=== PATIENT | female | born 1965 | race Caucasian/White ===

== ENCOUNTER 2020-02-18 11:00 | Outpatient (RCR) | payer OTHER, SELFPAY ==
--- NOTE | 2020-01-18 07:10 | HP.OTEVAL ---
Patient's Visit Information ANALISA QUINTERO is a 54 year old F, referred to Occupational Therapy by Dr. Nakul Concepcion MD, with a diagnosis of right intraticular distal radius fx. Date of Evaluation: 01/17/20 Occupational Therapist: Odessa Carrasquillo, BERENICE/Jimmy, CHT - Subjective This 54 year old female was seen for OT eval with dx of right intraartic lower end radial fx. Pt states she had a fall December 06, 2019. Pt was splinted for about two weeks and due to change in bone structure pt needed to have sx was on December 28, 2019. 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 pt states she is limited with all ADLs and IADls at this time due to her limited ROM and healing bone structure - ADLs Fasteners: Snaps Bathing: Handle washcloth & soap, Squeeze shampoo bottle Kitchen: Chop with knife, Peel fruits & vegetables, Open jars, Open bottle caps, Ziplock bags, Pour from pitcher, Lift saucepan Household: Vacuum, Sweep/mop, Laundry - Pain right wrist 0 Pain Intensity Range: 0, 4 - ROM Forearm: right supination 0 left 85 Wrist: right 55/25 left 75/75 Opposition: 10 ROM Comments: pt demo the ability to form a composite fist - Strength Neon Glass Blower: right 15# left 60# Lateral Pinch: right 6# left 10# Tripod Pinch: right 4# left 10# Tip-to-Tip Pinch: right 2# left 6# - Sensation Sensation Comments: denies - Quick DASH-Disab of Arm,Shoulder& Hand Quick DASH Score: 58.3325 - Goals Goal:: PT will demo an increase in cd technician strength by 20# to increase independent with basic occupations of daily living to return pt to PLOF by D/C. Pt will demo an increase in lateral and tripod pinch by 2# to increase pts independent with opening baggies, containers at PLOF by D/C. Goal:: Pt will demo an increase in wrist ROM equal to unaffected wrist to return pt to PLOF with grooming, dressing and home mtg tasks by D/C. Pt will demo an increase in forearm supination by 60* or greater to increase pts ind. With ADls and IADLS by d/c Goal:: Pt will report pain no greater than 1/10 with use of affected hand with BADLs and IADLs by d/c. Goal:: Pt will demo understanding of scar mtg. by end of 2nd session to increase tissue extensibility to limit scar adhesions and allow full tendons function by d/c. - Rehabilitation General Assessment: Pt demo with limited wrist and forearm ROM, newly healing sturcture limiting her IND. with ADLs and IADLS. Pt would benefit from skilled OT services 2x week for 6 weeks to return pt to OF. Today therapist ed. pt on AROM/PROM, edema mtg and scar mtg. craig. pt demo understanding and agree to POC. Rehabilitation Potential: Good - Anticipated Interventions A/AAROM/PROM, Strengthening, Modalities, Orthoses, Ergonomic Education, Fine Motor Coord/Vishnu - Visit Plan Frequency: 2-3x /Week Duration: 6 Weeks TEXT: Thank you for the opportunity to evaluate your patient. For Medicare and Medicare HMO plans, please review the plan of care and approve it. It will need to be FAXED BACK to us at [phone] for Medicare purposes. Please let me know if there are questions or concerns regarding this plan of care. Physician Signature: Date:
--- NOTE | 2020-01-23 12:11 | HP.OTREVAL ---
Dr. Nakul Concepcion MD, It has been my pleasure to treat ANALISA QUINTERO over the last 3 visits for right intraticular distal radius fx. Please see the progress note below for an update on the occupational therapy plan of care! Subjective: pt arrives 3 wks and 5 dyas s/p ORIF. Pt arrived stating no pain. Pt picked a stitch out. Pt see's Tuesday Objective/Function: Before: wrist 58/58 an increase from 55/25. Sup WFL. After: wrist 62/65 and increase from 55/25. Sup WFL Plan Frequency: 2-3x /Week Duration: 6 Weeks Plan: cont to increase pts ROM and increase functional strength for ADLS as tolerated Goals - Goals Patient Goals: Regain Mobility, Regain Strength, Use Hand/Wrist/Arm Normally Again Goal:: PT will demo an increase in network solutions architect strength by 20# to increase independent with basic occupations of daily living to return pt to PLOF by D/C. Pt will demo an increase in lateral and tripod pinch by 2# to increase pts independent with opening baggies, containers at PLOF by D/C. Goal:: Pt will demo an increase in wrist ROM equal to unaffected wrist to return pt to PLOF with grooming, dressing and home mtg tasks by D/C. Pt will demo an increase in forearm supination by 60* or greater to increase pts ind. With ADls and IADLS by d/c Goal:: Pt will report pain no greater than 1/10 with use of affected hand with BADLs and IADLs by d/c. Goal:: Pt will demo understanding of scar mtg. by end of 2nd session to increase tissue extensibility to limit scar adhesions and allow full tendons function by d/c. Anticipated Interventions Anticipated Interventions: A/AAROM/PROM, Strengthening, Modalities, Orthoses, Ergonomic Education, Fine Motor Coord/Vishnu Please do not hesitate to contact me at [phone] by phone or if you have questions or concerns regarding this new plan of care! Sincerely, Odessa Carrasquillo, OTR/L, CHT
--- NOTE | 2020-02-18 11:29 | HP.OTDCSUM_ITS ---
It has been my pleasure to treat ANALISA QUINTERO under orders from Dr. Nakul Concepcion MD, for the diagnosis of right intraticular distal radius fx for a total of 9 visit(s). Please see the following information for a summary of their discharge status. % Improvement: 80 Objective/Function: right laser set up operator strength 40# left 55#. right lateral pinch 10#. right tripod pinch 10#. right forearm supination 65. right wrist 65/55. pt demo good functional gains in ROM and strength- pt advised to cont. with PRE. pt demo understanding Patient Goals: Regain Mobility, Regain Strength, Use Hand/Wrist/Arm Normally Again Goal:: PT will demo an increase in laser set up operator strength by 20# to increase independent with basic occupations of daily living to return pt to PLOF by D/C. Pt will demo an increase in lateral and tripod pinch by 2# to increase pts independent with opening baggies, containers at PLOF by D/C. Goal:: Pt will demo an increase in wrist ROM equal to unaffected wrist to return pt to PLOF with grooming, dressing and home mtg tasks by D/C. Pt will demo an increase in forearm supination by 60* or greater to increase pts ind. With ADls and IADLS by d/c Goal:: Pt will report pain no greater than 1/10 with use of affected hand with BADLs and IADLs by d/c. Goal:: Pt will demo understanding of scar mtg. by end of 2nd session to increase tissue extensibility to limit scar adhesions and allow full tendons function by d/c. Plan: D/C Discharge Comments: pt has progressed well with ROM and strength following a ORIF. therapist advised pt to cont.with end range stretch and return to daily tasks as tolerated. If there are questions or concerns regarding this patient's occupational therapy, please fell free to call me at [phone]. Thank you for the refe rral of this patient. Sincerely, Odessa Carrasquillo, ALBERTINAR/L, CHT
== END 2020-02-18 19:00 | disposition home or self-care (01) ==
LOC: OT 11:00
PROVIDERS: Referring Provider Specialist; Visit Provider Specialist
DX: S52.571D Other intraarticular fracture of lower end of right radius, subsequent encounter for closed fracture with routine healing (principal)
CPT/HCPCS: 97110; 97166; 97530